=== PATIENT | male | born 1980 | race Caucasian/White ===

== ENCOUNTER 2020-08-02 20:43 | Emergency (ER) | payer BC, SELFPAY ==
[2020-08-02 20:44] VITALS: BP 158/104; PULSE 94; RESP 16; TEMP 36.4; O2SAT 98; BMI 37.8
--- NOTE | 2020-08-02 20:45 | ECG_ITS ---
APPROVED REPORT Exam: Resting ECG HR:87 bpm ECG Measurements Heart Rate 87 AXES PA 134 P 49 QRSd 96 QRS 0 QT 362 T 49 QTc 435 Conclusion Normal sinus rhythm Poor r wave progression Abnormal ECG Electronically signed by : Wayne Jorgensen, 08/03/2020 08:59:21
[2020-08-02 21:00] VITALS: BP 155/104; PULSE 85; RESP 16; O2SAT 96
--- NOTE | 2020-08-02 21:07 | XR_ITS ---
PROCEDURE: XR CHEST 2V CLINICAL HISTORY: cp COMPARISON: No exams were available for comparison FINDINGS: The cardiomediastinal silhouette and pulmonary vascularity are within normal limits considering a somewhat poor inspiration. The lungs are clear without infiltrates, suspicious nodules, or pleural effusions. No acute bony abnormalities. There is minor non recent wedging of a lower thoracic vertebrae. IMPRESSION: No acute findings. Dictated by: Dr. Héctor Lipscomb MD 08/02/2020 21:35 Dr. Héctor Lipscomb MD in [place] 08/02/2020 21:35
--- NOTE | 2020-08-02 21:07 | XR_ITS ---
PROCEDURE: XR SHOULDER LT MIN 2V CLINICAL INDICATION: pain COMPARISON: No exams were available for comparison FINDINGS: The clavicle is intact. There is a faint ossification or calcification within the AC joint probably posttraumatic in origin. There is a slightly lateral downsloping acromion process which could possibly predispose to mild impingement syndrome and suggest clinical correlation. The humeral head and glenoid appear normal. There are no soft tissue calcifications. IMPRESSION: Mild lateral downsloping acromion process, see discussion above Dictated by: Dr. Héctor Lipscomb MD 08/02/2020 21:38 Dr. Héctor Lipscomb MD in [place] 08/02/2020 21:38
[2020-08-02 21:20] LABS: Anion Gap 10.6 mEq/L (5-15); Basophils # 0.1 K/mm3 (0-0.2); Basophils % 0.8 % (0.1-2.0); Blood Urea Nitrogen 22 mg/dl (9-20); Calcium 9.7 mg/dl (8.4-10.2); Carbon Dioxide 28 mmol/L (22.0-30.0); Chloride 106 mmol/L (98-107); Creatinine Clearance Estimated 139 mL/min (50-200); Eosinophils # 0.4 K/mm3 (0.0-0.4); Eosinophils % 3.1 % (0.1-12.0); Estimated Glomerular Filt Rate 83 ml/min (>60); GFR (African American) 100 ML/MIN (>60); Glucose 125 mg/dl (74-100); Hematocrit 46.4 % (42.0-52.0); Hemoglobin 15.5 g/dL (14.1-18.0); Lymphocytes % 34.5 % (10-50); Mean Corpuscular HGB Conc 33.4 g/dL (31.8-35.4); Mean Corpuscular Hemoglobin 31.5 pg (27.0-31.2); Mean Corpuscular Volume 94.3 fl (80-94); Mean Platelet Volume 8.4 fl (7.4-10.4); Monocytes # 0.8 K/mm3 (0.1-1.0); Monocytes % 6.9 % (1.7-9.3); Neutrophils # 6.4 K/mm3 (1.8-7.8); Neutrophils % 54.7 % (37.0-80.0); Platelet Count 301 K/mm3 (142-424); Potassium 3.6 mmoL/L (3.5-5.1); Red Blood Count 4.92 M/mm3 (4.60-6.20); Red Cell Distribution Width 13.5 % (11.5-17.5); Sodium 141 mmol/L (136-145); White Blood Count 11.7 K/mm3 (4.8-10.8)
[2020-08-02 21:30] VITALS: BP 134/98; PULSE 84; RESP 16; O2SAT 99
[2020-08-02 21:58] LABS: Troponin I < 0.01 ng/ml (0.00-0.034)
--- NOTE | 2020-08-02 22:21 | HMH.EDGENADL ---
ED Disposition Clinical Impression: Chest pain Qualifiers: Chest pain type: unspecified Qualified Code(s): R07.9 - Chest pain, unspecified Disposition: Home, Self-Care Condition on Discharge: Good Instructions: DI for Atypical Chest Pain Referrals: Irene Hall PA [Primary Care Provider] - - Critical Care Critical Care Time: No Attestation: On 08/02/20, the high probability of a clinically significant, sudden or life threatening deterioration of the following system(s) required my full and direct attention, intervention and personal management. The time I documented below is in addition to time spent performing reported procedures but includes the following listed in this critical care notation. Medical Decision Making - Medical Records Medical records reviewed: Yes: I reviewed the patient's medical records. - Harrison Inquiry Pt receiving controlled substance: No Vital Signs: 08/02/20 20:44 08/02/20 21:00 08/02/20 21:30 Temperature 97.5 F L Temperature Source Oral Pulse Rate [Apical] 94 H 85 84 Respiratory Rate 16 16 16 Blood Pressure [Right Arm] 158/104 H 155/104 H 134/98 H Blood Pressure Mean [Right Arm] 122 121 110 Blood Pressure Source [Right Arm] Automatic Cuff Automatic Cuff Automatic Cuff Blood Pressure Position [Right Arm] Supine Supine Supine 02 Sat by Pulse Oximetry 98 96 99 Oxygen Delivery Method Room Air Room Air Room Air - Lab Data Lab Results 08/02/20 21:00: WBC 11.7 H, RBC 4.92, Hgb 15.5, Hct 46.4, MCV 94.3 H, MCH 31.5 H, MCHC 33.4, RDW 13.5, Plt Count 301, MPV 8.4, Neut % (Auto) 54.7, Lymph % (Auto) 34.5, [place] % (Auto) 6.9, Eos % (Auto) 3.1, Baso % (Auto) 0.8, Neut # (Auto) 6.4, Lymph # (Auto) 4.0, [place] # (Auto) 0.8, Eos # (Auto) 0.4, Baso # (Auto) 0.1 08/02/20 21:00: Sodium 141, Potassium 3.6, Chloride 106, Carbon Dioxide 28, Anion Gap 10.6, BUN 22 H, Creatinine 1.00, Estimated Creat Clear 139, Estimated GFR 83, Est GFR ( Amer) 100, Glucose 125 H, Calcium 9.7, Troponin I < 0.01 Result diagrams: 08/02/20 21:00 08/02/20 21:00 Orders (Tests/Meds): ED MEDICATIONS Discontinued Medications Generic Name Dose Route Start Last Admin Trade Name Thanh PRN Reason Stop Dose Admin Aspirin 324 mg 08/02/20 21:07 08/02/20 21:00 Aspirin 81mg Chewable Tablet PO 08/02/20 21:08 324 mg ONCE ONE Administration ORDERS Category Date Time Status Troponin I Q3H Lab 08/03/20 00:15 Ordered Troponin I Q3H Lab 08/03/20 03:15 Ordered Medical Decision Narrative: At this point, the exact cause of the patient's current symptom complex is unknown. Initial EKG is nondiagnostic and initial troponin within normal limits. At the present time, I doubt pulmonary embolus secondary to the lack of tachycardia, tachypnea, or hypoxia. The patient is also PERC negative. Similarly, I doubt aortic dissection or abdominal aortic aneurysm secondary to history and description of pain, the patient's nonfocal vascular examination in all four extremities, and CXR unremarkable for signs of mediastinal widening. Doubt pneumothorax given good bilateral breath sounds and chest X ray with good lung markings out to the periphery. No signs suggestive of pneumonia on history or physical exam as well. On examination patient does have pain with arm abduction and external rotation of arm, x-ray of shoulder was concerning for possible entrapment syndrome. These were consistent with patient's symptoms likely and will need to be followed up by primary care doctor for further work-up. And was informed of these findings and was amenable to plan General Adult HPI - General Chief complaint: Chest Pain Stated complaint: chest pain Time Seen by Provider: 08/02/20 21:00 Mode of Arrival: Ambulatory Limitations: No Limitations Description of Symptoms (Recalled from ER Triage Doc. by RN): Pt c/o pain in left upper chest that radiates to his left shoulder for a couple days . Pt rates pain as 7 out of 10 and is in
[2020-08-02 22:27] VITALS: BP 126/92; PULSE 83; RESP 16; TEMP 36.8; O2SAT 98
== END 2020-08-02 22:34 | disposition home or self-care (01) ==
PROVIDERS: Emergency Provider Emergency Medicine; PCP Nurse Practitioner Family
DX: R07.9 Chest pain, unspecified (principal); I10 Essential (primary) hypertension; E66.9 Obesity, unspecified; Z68.37 Body mass index [BMI] 37.0-37.9, adult; Z79.899 Other long term (current) drug therapy
CPT/HCPCS: 71046; 73030; 80048; 84484; 85025; 93005; 99283

== ENCOUNTER 2020-10-05 10:12 | Emergency (ER) | payer BC, SELFPAY ==
[2020-10-05 10:15] VITALS: BP 132/85; PULSE 82; RESP 19; TEMP 37.6; O2SAT 100; BMI 38.9
--- NOTE | 2020-10-05 10:39 | HMH.EDUTC ---
[facility] – [place] Disposition Clinical Impression: Sinusitis Qualifiers: Sinusitis location: unspecified location Chronicity: unspecified Qualified Code(s): J32.9 - Chronic sinusitis, unspecified Foot pain Qualifiers: Laterality: right Qualified Code(s): M79.671 - Pain in right foot Disposition: Home, Self-Care Condition on Discharge: Good Instructions: Sinusitis, Sinus Headache, DI for Sinusitis, DI for Foot Pain, Methylprednisolone, Amoxicillin and Clavulanic Acid Additional Instructions: *Monitor Temp, Over the counter Motrin or Tylenol as directed/as needed Tylenol every 4 hours and Motrin every 6 hours (as long as your family doctor has told you that you can take it) for fever or pain. and straight to ER if unable to lower temp less than 101.0 after medication given *Warm salt water gargles may help to soothe the throat *Throat Lozenges *Warm fluids like tea with honey may help to soothe the throat *Sleep elevated *Humidifier/Vaporizer *Flonase 2 sprays in each nostril daily but be aware that it may take 2-3 days before you notice improvement Make sure to follow up with your Family Doctor for further evaluation of pain in foot Call back to the [facility] later this evening for the official reading of your xray Return if needed Follow up IMMEDIATELY for new or worsening symptoms or no Noticeable improvement over the next 48-72 hours. 911 for difficulty breathing or swallowing Prescriptions: Amoxicillin/Potassium Clav [Augmentin 875-125 Tablet] 1 tab PO Q12H 7 Days #14 tab Transmission Status: Received by [facility] 493 methylPREDNISolone [Medrol 4mg tab] 4 mg PO DIRECTED #21 tab Transmission Status: Received by [facility] 493 Referrals: Irene Hall PA [Primary Care Provider] - As needed Forms: Work/School Release Time of Disposition: 11:13 Medical Decision Making - Harrison Inquiry Pt receiving controlled substance: No Harrison was queried for this patient: No Vital Signs: 10/05/20 10:15 10/05/20 11:14 Temperature 99.6 F 99.6 F Temperature Source Oral Pulse Rate 82 Pulse Rate [Right Brachial] 82 Respiratory Rate 19 19 Blood Pressure 132/85 Blood Pressure [Right Arm] 132/85 Blood Pressure Mean [Right Arm] 100 Blood Pressure Source [Right Arm] Automatic Cuff Blood Pressure Position [Right Arm] Sitting 02 Sat by Pulse Oximetry 100 Oxygen Delivery Method Room Air - Radiology Data #1 Image(s): Foot/Toes Image Reviewed: Yes I reviewed the patient's radiology image Preliminary Findings: No Fracture Seen Medical Decision Narrative: Patient state that he has taken both Augmentin and Steriods before without reactions or complications [facility] – [place] HPI - General Stated complaint: head stopped up, nose running, coughing up phlem Time Seen by Provider: 10/05/20 10:40 Mode of Arrival: Ambulatory Source of Information: Patient Limitations: No Limitations Description of Symptoms (Recalled from Triage Doc. by RN): PATIENT C/O HEADACHE, BODY ACHES, AND RIGHT LOWER LEG PAIN X 1 WEEK HEENT Symptoms (Recalled from RN notes): Yes Resp Symptoms (Recalled from RN notes): No Skin Symptoms (Recalled from RN notes): No MS Symptoms (Recalled from RN notes): Yes Functional Status (Recalled from RN notes): WNL - History of Present Illness Provider Complaint: Patient states that he has been having sinus problems for awhile now. State that he has been having sinus headache, sinus pain and pressure along with drainage in the back of his throat and feels like it is trying to move into his chest States that also he has been having pain in the bottom of his right foot for over a week and it is shooting pain up into his ankle area and lower leg Denies known injury - Related Data Home Medications Medication Instructions Recorded Confirmed raNITIdine HCL [Ranitidine HCl] 150 mg PO DAILY 12/23/18 08/02/20 Gabapentin [Gabapentin 300mg Cap] 300 mg PO BID 08/02/20 08/02/20 Losartan Potassium [Cozaar 50mg 50 mg
--- NOTE | 2020-10-05 10:45 | XR_ITS ---
PROCEDURE: XR FOOT RT MIN 3V CLINICAL INDICATION: PAIN COMPARISON: No exams were available for comparison FINDINGS: No fracture or dislocation. No lytic or blastic change. There is normal mineralization. The joint spaces are well-preserved. No significant degenerative/arthritic changes. No erosive changes evident. Other findings:None. IMPRESSION: No acute findings. Dictated by: Brannon Lopez MD 10/05/2020 13:15 Brannon Lopez MD in [place] 10/05/2020 13:15
[2020-10-05 11:14] VITALS: BP 132/85; PULSE 82; RESP 19; TEMP 37.6; O2SAT 100
== END 2020-10-05 11:18 | disposition home or self-care (01) ==
PROVIDERS: Emergency Provider Nurse Practitioner; PCP Nurse Practitioner Family
DX: J32.9 Chronic sinusitis, unspecified (principal); M79.671 Pain in right foot
CPT/HCPCS: 73630; 99202; G0463

== ENCOUNTER 2021-02-18 13:50 | Emergency (ER) | payer BC, SELFPAY ==
--- NOTE | 2021-02-18 13:46 | ECG_ITS ---
APPROVED REPORT Exam: Resting ECG HR:72 bpm ECG Measurements Heart Rate 72 AXES NV 138 P 58 QRSd 102 QRS 52 QT 384 T 46 QTc 420 Conclusion Normal sinus rhythm Normal ECG Electronically signed by : Wayne Jorgensen MD 02/23/2021 21:07:16
[2021-02-18 13:51] VITALS: BP 159/95; PULSE 61; RESP 18; O2SAT 98; BMI 30.4
--- NOTE | 2021-02-18 14:04 | XR_ITS ---
PROCEDURE: XR CHEST 2V CLINICAL HISTORY: chest pain COMPARISON: CR XR CHEST 2V from 08/02/2020 FINDINGS: The cardiomediastinal silhouette and pulmonary vascularity are within normal limits. No lobar consolidation or collapse. There are low lung volumes. Focal area of increased density is present in the left suprahilar region and may be due to costochondral calcification of the 1st rib. The remaining lungs are clear. Degenerative changes thoracic spine with mild lower thoracic kyphosis IMPRESSION: No change with no acute finding Dictated by: Brannon Lopez MD 02/18/2021 14:34 Brannon Lopez MD in [place] 02/18/2021 14:34
[2021-02-18 14:13] LABS: Basophils # 0.1 K/mm3 (0-0.2); Basophils % 1.6 % (0.1-2.0); Chloride 107 mmol/L (98-107); Eosinophils # 0.1 K/mm3 (0.0-0.4); Eosinophils % 1.6 % (0.1-12.0); Hematocrit 46.2 % (42.0-52.0); Hemoglobin 15.4 g/dL (14.1-18.0); Lymphocytes # 2.7 K/mm3 (0.7-4.5); Lymphocytes % 32.6 % (10-50); Mean Corpuscular HGB Conc 33.3 g/dL (31.8-35.4); Mean Corpuscular Hemoglobin 31.7 pg (27.0-31.2); Mean Corpuscular Volume 95.1 fl (80-94); Mean Platelet Volume 8.9 fl (7.4-10.4); Monocytes # 0.5 K/mm3 (0.1-1.0); Monocytes % 5.5 % (1.7-9.3); Neutrophils # 4.9 K/mm3 (1.8-7.8); Neutrophils % 58.7 % (37.0-80.0); Platelet Count 286 K/mm3 (142-424); Red Blood Count 4.86 M/mm3 (4.60-6.20); Red Cell Distribution Width 13.3 % (11.5-17.5); Sodium 141 mmol/L (136-145); White Blood Count 8.3 K/mm3 (4.8-10.8)
[2021-02-18 14:14] LABS: Potassium 4.2 mmoL/L (3.5-5.1)
[2021-02-18 14:17] LABS: Anion Gap 12.2 mEq/L (5-15); Blood Urea Nitrogen 12 mg/dl (9-20); Calcium 8.9 mg/dl (8.4-10.2); Carbon Dioxide 26 mmol/L (22.0-30.0); Creatinine Clearance Estimated 140 mL/min (50-200); Estimated Glomerular Filt Rate 93 ml/min (>60); GFR (African American) 113 ML/MIN (>60); Glucose 106 mg/dl (74-100)
--- NOTE | 2021-02-18 14:17 | PC.NURSE ---
Pt to rad.
[2021-02-18 14:29] LABS: Troponin I < 0.01 ng/ml (0.00-0.034)
[2021-02-18 15:01] VITALS: BP 121/83; PULSE 80; RESP 21; O2SAT 98
[2021-02-18 15:31] VITALS: BP 116/84; PULSE 56; RESP 22; O2SAT 98
[2021-02-18 16:01] VITALS: BP 118/77; PULSE 60; RESP 23; O2SAT 97
[2021-02-18 16:31] VITALS: BP 134/73; PULSE 61; RESP 19; O2SAT 98
[2021-02-18 17:59] LABS: Troponin I < 0.01 ng/ml (0.00-0.034)
--- NOTE | 2021-02-18 18:13 | HMH.EDGENADL ---
ED Disposition Clinical Impression: Atypical chest pain Supraspinatus syndrome Qualifiers: Laterality: left Qualified Code(s): M75.102 - Unspecified rotator cuff tear or rupture of left shoulder, not specified as traumatic Disposition: Home, Self-Care Condition on Discharge: Good Instructions: DI for Atypical Chest Pain Prescriptions: Ibuprofen [Ibuprofen 400mg Tablet] 600 mg PO Q6HP 14 Days #60 tab [facility] hydrOXYzine pamoate [Vistaril 25mg capsule] 25 mg PO Q8H PRN #20 cap PRN Reason: Anxiety Transmission Status[facility] Referrals: Irene Hall PA [Primary Care Provider] - Forms: Work/School Release - Critical Care Critical Care Time: No Attestation: On 02/18/21, the high probability of a clinically significant, sudden or life threatening deterioration of the following system(s) required my full and direct attention, intervention and personal management. The time I documented below is in addition to time spent performing reported procedures but includes the following listed in this critical care notation. Medical Decision Making - Medical Records Medical records reviewed: Yes: I reviewed the patient's medical records. - Harrison Inquiry Pt receiving controlled substance: No Vital Signs: 02/18/21 13:51 02/18/21 15:01 02/18/21 15:31 Temperature Temperature Source Pulse Rate 80 56 L Pulse Rate [Left Radial] 61 Respiratory Rate 18 21 22 Blood Pressure 121/83 116/84 Blood Pressure [Right Arm] 159/95 H Blood Pressure Mean 98 94 Blood Pressure Mean [Right Arm] 116 Blood Pressure Source Blood Pressure Source [Right Arm] Automatic Cuff Blood Pressure Position Blood Pressure Position [Right Arm] Sitting 02 Sat by Pulse Oximetry 98 98 98 Oxygen Delivery Method Room Air 02/18/21 16:01 02/18/21 16:31 02/18/21 18:27 Temperature 97.6 F Temperature Source Oral Pulse Rate 60 61 69 Pulse Rate [Left Radial] Respiratory Rate 23 19 18 Blood Pressure 118/77 134/73 136/81 Blood Pressure [Right Arm] Blood Pressure Mean 92 82 Blood Pressure Mean [Right Arm] Blood Pressure Source Automatic Cuff Blood Pressure Source [Right Arm] Blood Pressure Position Sitting Blood Pressure Position [Right Arm] 02 Sat by Pulse Oximetry 97 98 Oxygen Delivery Method Room Air - Lab Data Lab Results 02/18/21 13:52: WBC 8.3, RBC 4.86, Hgb 15.4, Hct 46.2, MCV 95.1 H, MCH 31.7 H, MCHC 33.3, RDW 13.3, Plt Count 286, MPV 8.9, Neut % (Auto) 58.7, Lymph % (Auto) 32.6, [place] % (Auto) 5.5, Eos % (Auto) 1.6, Baso % (Auto) 1.6, Neut # (Auto) 4.9, Lymph # (Auto) 2.7, [place] # (Auto) 0.5, Eos # (Auto) 0.1, Baso # (Auto) 0.1 02/18/21 13:52: Sodium 141, Potassium 4.2, Chloride 107, Carbon Dioxide 26, Anion Gap 12.2, BUN 12, Creatinine 0.90, Estimated Creat Clear 140, Estimated GFR 93, Est GFR ( Amer) 113, Glucose 106 H, Calcium 8.9, Troponin I < 0.01 02/18/21 17:01: Troponin I < 0.01 Result diagrams: 02/18/21 13:52 02/18/21 13:52 Orders (Tests/Meds): ED MEDICATIONS Discontinued Medications Generic Name Dose Route Start Last Admin Trade Name Freq PRN Reason Stop Dose Admin Lorazepam 0.5 mg 02/18/21 15:08 02/18/21 16:04 Lorazepam 0.5mg Tablet PO 02/18/21 15:09 0.5 mg ONCE ONE Administration ORDERS Category Date Time Status Troponin I Q3H Lab 02/18/21 20:15 Ordered Medical Decision Narrative: Pt to the Ed today for pain to the left upper extremity and chest. DDx includes atypical chest pain, ACS, Pneumothorax, plueral effusion, pneumonia, shoulder dislocation or shoulder MSK pain. Will obtain CBC, CMP, troponin, CXR for further evaluation. Pt is not tachycardic, not short of breath or hypoxic and has no other risk factors for PE. Labs obtained and pt has no elevation in 0 or 3 hr troponin, no significant anemia and no focal consolidative process. Pt was told about hi
[2021-02-18 18:27] VITALS: BP 136/81; PULSE 69; RESP 18; TEMP 36.4; O2SAT 98
== END 2021-02-18 18:28 | disposition home or self-care (01) ==
PROVIDERS: Emergency Provider Student in an Organized Health Care Education/Training Program; PCP Nurse Practitioner Family
DX: R07.89 Other chest pain (principal); M75.102 Unspecified rotator cuff tear or rupture of left shoulder, not specified as traumatic
CPT/HCPCS: 36415; 71046; 80048; 84484; 85025; 93005; 99283

== ENCOUNTER 2021-03-28 17:50 | Emergency (ER) | payer BC, SELFPAY ==
[2021-03-28] VITALS (8 sets, daily range): BP systolic 114–141; BP diastolic 74–97; PULSE 80–102; RESP 16–22; TEMP 36.6–37.1; O2SAT 95–98; BMI 37.8
--- NOTE | 2021-03-28 17:53 | HMH.EDGENADL ---
ED Disposition Condition on Discharge: Good - Critical Care Critical Care Time: No <Arnold Song - Last Filed: 03/28/21 20:01> Condition on Discharge: Good Time of Disposition: 22:13 - Critical Care Critical Care Time: No Total Critical Care Time: 0 <Johanny Young - Last Filed: 03/28/21 22:13> Clinical Impression: Atypical chest pain, Hyperventilation, Acute anxiety Disposition: Home, Self-Care Additional Instructions: You have been evaluated for atypical chest pain. There is evidence of recent pneumonia, Covid pneumonia, on your CT scan. No other abnormalities seen. Please continue to monitor your symptoms at home. Follow-up with your primary care doctor. Return to the emergency department for any new or worsening symptoms. Referrals: Yeyo Bailey APRN [Primary Care Provider] - Attestation: On 03/28/21, the high probability of a clinically significant, sudden or life threatening deterioration of the following system(s) required my full and direct attention, intervention and personal management. The time I documented below is in addition to time spent performing reported procedures but includes the following listed in this critical care notation. Medical Decision Making - Harrison Inquiry Pt receiving controlled substance: No - Lab Data Result diagrams: 03/28/21 17:53 03/28/21 17:53 <DuncanArnold - Last Filed: 03/28/21 20:01> - Lab Data Result diagrams: 03/28/21 17:53 03/28/21 17:53 <Johanny Young - Last Filed: 03/28/21 22:13> Vital Signs: 03/28/21 17:51 03/28/21 19:15 03/28/21 19:42 Temperature 98 F 98.7 F Temperature Source Oral Oral Pulse Rate 93 H 94 H Pulse Rate [Radial] 98 H Respiratory Rate 22 16 16 Blood Pressure 136/84 132/96 H Blood Pressure [Right Arm] 141/97 H Blood Pressure Mean [Right Arm] 111 Blood Pressure Position Sitting Blood Pressure Position [Right Arm] Sitting 02 Sat by Pulse Oximetry 98 96 98 Oxygen Delivery Method Room Air Room Air 03/28/21 19:44 03/28/21 20:00 03/28/21 20:56 Temperature Temperature Source Pulse Rate 102 H 99 H 88 Pulse Rate [Radial] Respiratory Rate 16 21 16 Blood Pressure 132/96 H 130/94 H 115/83 Blood Pressure [Right Arm] Blood Pressure Mean [Right Arm] Blood Pressure Position Blood Pressure Position [Right Arm] 02 Sat by Pulse Oximetry 98 97 96 Oxygen Delivery Method 03/28/21 21:00 Temperature Temperature Source Pulse Rate 84 Pulse Rate [Radial] Respiratory Rate 16 Blood Pressure 126/85 Blood Pressure [Right Arm] Blood Pressure Mean [Right Arm] Blood Pressure Position Blood Pressure Position [Right Arm] 02 Sat by Pulse Oximetry 95 Oxygen Delivery Method - Lab Data Lab Results 03/28/21 17:53: WBC 12.1 H, RBC 5.18, Hgb 16.1, Hct 48.4, MCV 93.3, MCH 31.1, MCHC 33.4, RDW 13.2, Plt Count 416, MPV 9.3, Neut % (Auto) 64.4, Lymph % (Auto) 28.5, [place] % (Auto) 5.8, Eos % (Auto) 0.5, Baso % (Auto) 0.7, Neut # (Auto) 7.8, Lymph # (Auto) 3.4, [place] # (Auto) 0.7, Eos # (Auto) 0.1, Baso # (Auto) 0.1 03/28/21 17:53: Sodium 139, Potassium 3.6, Chloride 107, Carbon Dioxide 25, Anion Gap 10.6, BUN 13, Creatinine 0.90, Estimated Creat Clear 152, Estimated GFR 93, Est GFR ( Amer) 113, Glucose 128 H, Calcium 9.2, Troponin I < 0.01 03/28/21 17:53: D-Dimer 0.54 H 03/28/21 21:10: Troponin I < 0.01 Orders (Tests/Meds): ED MEDICATIONS Discontinued Medications Generic Name Dose Route Start Last Admin Trade Name Freq PRN Reason Stop Dose Admin Iopamidol 70 ml 03/28/21 19:34 03/28/21 19:35 Iopamidol-370 (76%);100ml Bottle IV 03/28/21 19:35 70 ml ONCE ONE Administration Sodium Chloride 40 ml 03/28/21 19:34 03/28/21 19:35 0.9 % Sodium Chloride 50 Ml Vial IV 03/28/21 19:35 40 ml ONCE ONE Administration Sodium Chloride 10 ml 03/28/21 19:34 03/28/21 19:35 Sodium Chloride 0.9% 10ml Syr (Rad Only) IV 03/28/21 19:35 10 ml ONCE ONE Administratio
--- NOTE | 2021-03-28 18:03 | ECG_ITS ---
APPROVED REPORT Exam: Resting ECG HR:90 bpm ECG Measurements Heart Rate 90 AXES OR 132 P 66 QRSd 104 QRS 88 QT 382 T 14 QTc 467 Conclusion Normal sinus rhythm Incomplete right bundle branch block Borderline ECG Electronically signed by : Wayne Jorgensen MD 03/30/2021 21:23:21
--- NOTE | 2021-03-28 18:05 | XR_ITS ---
PROCEDURE INFORMATION: Exam: XR Chest Exam date and time: 03/28/2021 6:05 PM Age: 41 years old Clinical indication: Shortness of breath; Additional info: Chest pain TECHNIQUE: Imaging protocol: XR of the chest. Views: 1 view. Total images: 1 COMPARISON: CR XR CHEST 2V 02/18/2021 2:09 PM FINDINGS: Lungs: Low lung volumes. Pulmonary vasculature grossly normal. No gross pulmonary infiltrates or edema pattern. Pleural spaces: No pleural effusion. No pneumothorax. Heart/Mediastinum: Heart size normal. No tracheal/mediastinal shift. Bones/joints: No acute osseous abnormalities are identified. Mild thoracic spondylosis. IMPRESSION: No acute thoracic process. No significant change from 02/18/2021.
[2021-03-28 18:14] LABS: Basophils # 0.1 K/mm3 (0-0.2); Basophils % 0.7 % (0.1-2.0); Eosinophils # 0.1 K/mm3 (0.0-0.4); Eosinophils % 0.5 % (0.1-12.0); Hematocrit 48.4 % (42.0-52.0); Hemoglobin 16.1 g/dL (14.1-18.0); Lymphocytes # 3.4 K/mm3 (0.7-4.5); Lymphocytes % 28.5 % (10-50); Mean Corpuscular HGB Conc 33.4 g/dL (31.8-35.4); Mean Corpuscular Hemoglobin 31.1 pg (27.0-31.2); Mean Corpuscular Volume 93.3 fl (80-94); Mean Platelet Volume 9.3 fl (7.4-10.4); Monocytes # 0.7 K/mm3 (0.1-1.0); Monocytes % 5.8 % (1.7-9.3); Neutrophils # 7.8 K/mm3 (1.8-7.8); Neutrophils % 64.4 % (37.0-80.0); Platelet Count 416 K/mm3 (142-424); Red Blood Count 5.18 M/mm3 (4.60-6.20); Red Cell Distribution Width 13.2 % (11.5-17.5); White Blood Count 12.1 K/mm3 (4.8-10.8)
[2021-03-28 18:17] LABS: Anion Gap 10.6 mEq/L (5-15); Blood Urea Nitrogen 13 mg/dl (9-20); Calcium 9.2 mg/dl (8.4-10.2); Carbon Dioxide 25 mmol/L (22.0-30.0); Chloride 107 mmol/L (98-107); Creatinine Clearance Estimated 152 mL/min (50-200); Estimated Glomerular Filt Rate 93 ml/min (>60); GFR (African American) 113 ML/MIN (>60); Glucose 128 mg/dl (74-100); Potassium 3.6 mmoL/L (3.5-5.1); Sodium 139 mmol/L (136-145)
[2021-03-28 18:29] LABS: Troponin I < 0.01 ng/ml (0.00-0.034)
[2021-03-28 18:55] LABS: D-Dimer 0.54 ug/mL (0.0-0.5)
--- NOTE | 2021-03-28 19:10 | CT_ITS ---
PROCEDURE INFORMATION: Exam: CTA Chest With Contrast Exam date and time: 03/28/2021 7:10 PM Age: 41 years old Clinical indication: Pain; Chest pressure; Additional info: SOA, elev d-dimer, R/O pe HX of recent covid TECHNIQUE: Imaging protocol: Computed tomographic angiography of the chest with contrast. 3D rendering (Not supervised by radiologist): MIP and/or 3D reconstructed images were created by the technologist. Total images: 603 Radiation optimization: All CT scans at this facility use at least one of these dose optimization techniques: automated exposure control; mA and/or kV adjustment per patient size (includes targeted exams where dose is matched to clinical indication); or iterative reconstruction. Contrast material: ISOVUE 370; Contrast volume: 70 ml; Contrast route: INTRAVENOUS (IV); COMPARISON: CR XR CHEST PORTABLE 03/28/2021 6:15 PM FINDINGS: Pulmonary arteries: The pulmonary arteries enhance appropriately with no evidence of pulmonary embolism. Aorta: The aorta enhances appropriately without evidence of dissection or aneurysm. No mediastinal hematoma. Thyroid: The visualized thyroid gland demonstrates no gross abnormality. Lungs: Mild bilateral bronchial wall thickening suggesting an element of bronchitis or bronchial edema, with no evidence of bronchiectasis or bronchial occlusions. Patchy mild peripheral alveolar opacities are present in the right upper lobe posterior segment and in the inferior right middle lobe near the minor fissure, with additional multifocal patchy involvement in the lower lobes and posterolateral left upper lobe. This is concerning for multifocal pneumonia. Granulomatous calcifications in the left lower lobe and left hilum. No pulmonary mass lesions are identified. Pleural spaces: No pleural effusion. No pneumothorax. Heart: Heart size normal. No pericardial effusion. Mediastinal space: The esophagus is largely contracted but demonstrates no gross abnormality. Lymph nodes: No supraclavicular or axillary adenopathy. No mediastinal adenopathy. Borderline brandon enlargement in the left hilum measuring 9 mm short axis. Liver: Question mild generalized fatty infiltration of the liver. Pancreas: Mild-moderate fatty infiltration of the pancreas. Bones/joints: No acute osseous abnormalities are identified. Soft tissues: The soft tissues of the chest wall demonstrate no acute abnormality. IMPRESSION: 1. No evidence of pulmonary embolism or aortic dissection. 2. Multifocal peripheral alveolar opacities in both lungs concerning for multifocal pneumonia or changes of recent prior pneumonia. 3. Mild bronchial wall thickening suggesting an element of bronchitis or bronchial edema. 4. Additional nonemergent findings detailed above.
[2021-03-28 21:51] LABS: Troponin I < 0.01 ng/ml (0.00-0.034)
== END 2021-03-28 22:23 | disposition home or self-care (01) ==
PROVIDERS: Emergency Provider Emergency Medicine; PCP Nurse Practitioner Family
DX: R07.9 Chest pain, unspecified (principal); R06.4 Hyperventilation; F41.9 Anxiety disorder, unspecified
CPT/HCPCS: 36415; 71045; 71275; 80048; 84484; 85025; 85378; 93005; 96365; 96367; 99283; Q9967

== ENCOUNTER 2022-11-29 22:26 | Emergency (ER) | payer BC, SELFPAY ==
[2022-11-29 22:26] VITALS: BP 125/106; PULSE 74; RESP 17; TEMP 36.9; O2SAT 98; BMI 41.8
--- NOTE | 2022-11-29 22:27 | ECG_ITS ---
APPROVED REPORT Exam: Resting ECG HR:65 bpm ECG Measurements Heart Rate 65 AXES ME 151 P 60 QRSd 108 QRS 89 QT 379 T 41 QTc 391 Conclusion SINUS RHYTHM INCOMPLETE RIGHT BUNDLE BRANCH BLOCK [90+ ms QRS DURATION, TERMINAL R IN V1/V2, 40+ ms S IN I/aVL/V4/V5/V6] BORDERLINE ECG UNCONFIRMED REPORT Electronically signed by : Wayne Jorgensen MD 11/30/2022 20:07:03
--- NOTE | 2022-11-29 22:30 | XR_ITS ---
PROCEDURE INFORMATION: Exam: XR Chest Exam date and time: 11/29/2022 10:51 PM Age: 42 years old Clinical indication: Sternal or substernal pain and left-sided; Additional info: Chest pain TECHNIQUE: Imaging protocol: Radiologic exam of the chest. Views: 2 views. COMPARISON: CR XR CHEST PORTABLE 02/27/2021 18:15 FINDINGS: Lungs: Low lung volumes with associated vascular crowding and bibasilar atelectasis. Pleural spaces: Unremarkable. No pleural effusion. No pneumothorax. Heart/Mediastinum: Unremarkable. No cardiomegaly. Bones/joints: Unremarkable. IMPRESSION: No acute findings.
--- NOTE | 2022-11-29 22:38 | PC.NURSE ---
Pt does not want nitro at this time, states it will give him a headache.
[2022-11-29 22:43] LABS: Basophils # 0.1 K/mm3 (0-0.2); Basophils % 0.7 % (0.1-2.0); Eosinophils # 0.3 K/mm3 (0.0-0.4); Hematocrit 49.2 % (42.0-52.0); Hemoglobin 15.9 g/dL (14.1-18.0); Lymphocytes # 4.3 K/mm3 (0.7-4.5); Lymphocytes % 39.1 % (10-50); Mean Corpuscular HGB Conc 32.4 g/dL (31.8-35.4); Mean Corpuscular Hemoglobin 30.5 pg (27.0-31.2); Mean Platelet Volume 8.9 fl (7.4-10.4); Monocytes # 0.6 K/mm3 (0.1-1.0); Monocytes % 5.8 % (1.7-9.3); Neutrophils # 5.7 K/mm3 (1.8-7.8); Neutrophils % 51.4 % (37.0-80.0); Platelet Count 311 K/mm3 (142-424); Red Blood Count 5.23 M/mm3 (4.60-6.20); Red Cell Distribution Width 13.3 % (11.5-17.5)
[2022-11-29 22:52] LABS: Chloride 101 mmol/L (98-107); Potassium 4.1 mmoL/L (3.5-5.1); Sodium 141 mmol/L (136-145)
[2022-11-29 22:55] LABS: Alanine Aminotransferase 35 U/L (12-78); Albumin Level 4.6 g/dl (3.5-5.0); Albumin/Globulin Ratio 1.3 (1.1-1.8); Alkaline Phosphatase 83 U/L (38-126); Anion Gap 15.1 mEq/L (5-15); Aspartate Amino Transferase 32 U/L (17-59); Bilirubin,Total 0.6 mg/dl (0.2-1.3); Blood Urea Nitrogen 16 mg/dl (9-20); Carbon Dioxide 29 mmol/L (22.0-30.0); Creatinine Clearance Estimated 85 mL/min (50-200); Estimated Glomerular Filt Rate 73 ml/min (>60); GFR (African American) 89 ML/MIN (>60); Globulin 3.6 g/dL (1.3-3.2); Total Protein,Serum 8.2 g/dl (6.3-8.2)
[2022-11-29 22:56] LABS: Calcium 9.3 mg/dl (8.4-10.2); Glucose 82 mg/dl (74-100)
--- NOTE | 2022-11-29 22:59 | PC.NURSE ---
patient gone to RAD at this time.
[2022-11-29 23:05] LABS: NT Pro Brain Natriuretic Pep. < 20.0 pg/mL (0-125)
[2022-11-29 23:09] LABS: Troponin I < 0.01 ng/ml (0.00-0.034)
[2022-11-29 23:11] LABS: Microscopic, Urine URINE MICROSCOPIC (MICROSCOPIC)
[2022-11-29 23:19] LABS: Appearance,Urine CLEAR (Clear); Bilirubin,Urine Negative (Negative); Blood, Urine Negative (Negative); Color,Urine YELLOW (Yellow); Glucose,Urine (UA) Negative (Negative); Ketones,Urine Negative (Negative); Leukocyte Esterase,Urine Negative (Negative); Nitrate,Urine Negative (Negative); Protein,Urine Negative (Negative); Urobilinogen,Urine 0.2 EU/dl (0.2)
--- NOTE | 2022-11-29 23:52 | PC.NURSE ---
Dr. Everett at
[2022-11-29 23:59] LABS: Mucus,Urine Trace /lpf; Squamous Epithelial Cell,Urine Occasional #/hpf (0-5)
[2022-11-30] VITALS: BP 105/70; PULSE 54; RESP 19; O2SAT 96
--- NOTE | 2022-11-30 00:16 | [facility].EDCP ---
Discharge Plan Disposition Patient Disposition: Home, Self-Care Prescriptions Prescriptions: No Action ranitidine HCl 150 MG tablet 150 mg PO DAILY losartan 50 MG tablet 50 mg PO DAILY gabapentin 300 MG capsule 300 mg PO BID methylprednisolone 4 MG tablet 4 mg PO DIRECTED Qty: 21 0RF Rx Instructions: Take as directed on package instructions amoxicillin-pot clavulanate 1 EACH tablet 1 tab PO Q12H 7 Days Qty: 14 0RF ibuprofen 400 MG tablet 600 mg PO Q6HP 14 Days Qty: 60 0RF hydroxyzine pamoate 25 MG capsule 25 mg PO Q8H PRN (Reason: Anxiety) Qty: 20 0RF hydroxyzine pamoate 25 MG capsule 25 mg PO Q8H PRN (Reason: Anxiety) Qty: 20 0RF Referrals Follow up/Referrals: Yeyo Bailey APRN [Primary Care Provider] - See instructions Clinical Impressions Clinical Impression: Chest pain Stand Alone Forms Stand Alone Forms: Work/School Release Instructions Patient Instructions: DI for Atypical Chest Pain Discharge ED Provider: Karlos (ED)Dane Chest Pain HPI General Chief Complaint: Chest Pain Stated Complaint: CP Time Seen by Provider: 11/29/22 22:45 Mode of Arrival: Wheelchair Source of Information: Patient and Medical Record Limitations: No Limitations Description of Symptoms (Recalled from ER Triage Doc. by RN): 42 M presents with 8/10 chest pain that he reports as a pressure. He reports having hundreds of tests and no one can tell him anything. This episode is similar to previous in the past. Patient also adds he has tingling to his arms and legs. History of Present Illness HPI narrative: pt had onset of lower ant chest pain and upper abd pain tonight - has seen card at [facility] and reported nl gxt - no known cardiac dis MD complaint: chest pain Onset (ago): hour(s) Duration: intermittent Activity at onset: during rest Pain location: epigastric Severity: moderate Quality: sharp Risk Factors for CAD: Family Hx of CAD Treatments prior to or on arrival for Cardiac Chest Pain: none ABRAHAN Score for Non-Stemi Age of Patient: 40-49 years old Heart Rate: 70-89 bpm Systolic Blood Pressure: 100-119 mmHg Serum Creatinine: 0.80-1.19 mg/dl CHF [place] Class: I-No CHF Other Risk Factors: None Non-Stemi Risk Score: 84 Risk Stratification: 1-108 = Low Risk Related Data Prior Cardiac Testing/Procedures: Stress Test Home Medications Medication Instructions Recorded Confirmed ranitidine HCl 150 mg tablet 150 mg PO DAILY GERD 12/23/18 08/02/20 gabapentin 300 mg capsule 300 mg PO BID Back ache/back pain 08/02/20 08/02/20 losartan 50 mg tablet 50 mg PO DAILY High blood pressure 08/02/20 08/02/20 Previous Rx's Medication Instructions Recorded amoxicillin 875 mg-potassium 1 tab PO Q12H 7 days #14 tabs 10/05/20 clavulanate 125 mg tablet methylprednisolone 4 mg tablet 4 mg PO DIRECTED #21 tabs 10/05/20 hydroxyzine pamoate 25 mg capsule 25 mg PO Q8H PRN Anxiety #20 caps 02/18/21 ibuprofen 400 mg tablet 600 mg PO Q6HP 14 days #60 tabs 02/18/21 hydroxyzine pamoate 25 mg capsule 25 mg PO Q8H PRN Anxiety #20 caps 03/28/21 Allergies Allergy/AdvReac Type Severity Reaction Status Date / Time No Known Allergies Allergy Verified 12/23/18 21:17 [facility] Disclaimer: The information contained in this section may have been updated after the patient was seen, as this information can be updated by other users. Social History Smoking Status: Never smoker alcohol intake: never substance use type: denies use current occupational status: other Travel in the last 8 weeks: None household members: spouse housing: house ROS Obtained: Yes All systems reviewed & no additional complaints except as documented Physical Exam General General appearance: alert Head Head exam: normocephalic Eye Eye exam: Present PERRL and EOMI ENT ENT exam: Present mucous membranes moist Neck Neck exam: Present trachea midline Respiratory Respiratory ex
--- NOTE | 2022-11-30 00:24 | CT_ITS ---
PROCEDURE INFORMATION: Exam: CT Abdomen And Pelvis With Contrast Exam date and time: 11/30/2022 12:45 AM Age: 42 years old Clinical indication: Abdominal pain; Localized; Upper TECHNIQUE: Imaging protocol: Computed tomography of the abdomen and pelvis with contrast. Radiation optimization: All CT scans at this facility use at least one of these dose optimization techniques: automated exposure control; mA and/or kV adjustment per patient size (includes targeted exams where dose is matched to clinical indication); or iterative reconstruction. Contrast material: ISOVUE; Contrast volume: 75 ml; Contrast route: IV; REPORTING DATA: Count of CT and Cardiac NM exams in prior 12 months: This patient has received 0 known CTs and 0 known cardiac nuclear medicine studies in the 12 months prior to the current study. COMPARISON: CT ABDOMEN PELVIS W CON 09/29/2018 01:37 FINDINGS: Lungs: Mild bibasilar atelectasis. Liver: Normal. No mass. Gallbladder and bile ducts: Normal. No calcified stones. No ductal dilation. Pancreas: Normal. No ductal dilation. Spleen: Normal. No splenomegaly. Adrenal glands: Normal. No mass. Kidneys and ureters: Normal. No hydronephrosis. Stomach and bowel: Nonspecific small bowel wall thickening. Appendix: Unremarkable appendix. 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 Vasculature: Unremarkable. No abdominal aortic aneurysm. Lymph nodes: Unremarkable. No enlarged lymph nodes. Urinary bladder: Unremarkable as visualized. Reproductive: Mild prostate enlargement. Bones/joints: Unremarkable. No acute fracture. Soft tissues: Unremarkable. Other findings: Stigmata of old granulomatous disease. IMPRESSION: Nonspecific small bowel wall thickening. Please correlate for evidence of enteritis.
[2022-11-30 01:18] LABS: Amylase 80 U/L (30-110); Lipase 102 U/L (23-300)
[2022-11-30 01:30] LABS: Troponin I < 0.01 ng/ml (0.00-0.034)
[2022-11-30 01:41] VITALS: BP 110/72; PULSE 63; RESP 16; TEMP 36.6
[2022-11-30 02:11] VITALS: PULSE 81
== END 2022-11-30 02:12 | disposition home or self-care (01) ==
PROVIDERS: Emergency Provider Emergency Medicine; PCP Nurse Practitioner Family
DX: R07.9 Chest pain, unspecified (principal); R20.2 Paresthesia of skin; R10.13 Epigastric pain
CPT/HCPCS: 71046; 74177; 80053; 81001; 82150; 83690; 83880; 84484; 85025; 93005; 96361; 96374; 96375; 99285; Q9967

== ENCOUNTER 2023-02-20 11:56 | Emergency (ER) | payer BC, SELFPAY ==
[2023-02-20] VITALS (7 sets, daily range): BP systolic 101–131; BP diastolic 80–88; PULSE 53–70; RESP 16–21; TEMP 36.6–36.7; O2SAT 96–98; BMI 37.8
--- NOTE | 2023-02-20 11:56 | ECG_ITS ---
APPROVED REPORT Exam: Resting ECG HR:71 bpm ECG Measurements Heart Rate 71 AXES [place] 153 P 61 QRSd 111 QRS 85 QT 383 T 11 QTc 405 Conclusion SINUS RHYTHM MODERATE INTRAVENTRICULAR CONDUCTION DELAY [110+ ms QRS DURATION] BORDERLINE ECG UNCONFIRMED REPORT Electronically signed by : Wayne Jorgensen MD 02/21/2023 15:51:52
--- NOTE | 2023-02-20 12:27 | XR_ITS ---
PROCEDURE INFORMATION: Exam: XR Chest Exam date and time: 02/20/2023 12:34 PM Age: 42 years old Clinical indication: Other: Chest pain; Additional info: Cp TECHNIQUE: Imaging protocol: Radiologic exam of the chest. Views: 1 view. COMPARISON: CR XR CHEST 2V 11/29/2022 10:51 PM FINDINGS: Lungs: Unremarkable. No consolidation. Pleural spaces: Unremarkable. No pleural effusion. No pneumothorax. Heart/Mediastinum: Unremarkable. No cardiomegaly. Bones/joints: Unremarkable. IMPRESSION: No acute findings.
--- NOTE | 2023-02-20 12:28 | HMH.EDGENADL ---
Discharge Plan Disposition Patient Disposition: Home, Self-Care Condition: Good Prescriptions Prescriptions: New hydroxyzine HCl 25 mg tablet 25 mg PO BID PRN (Reason: anxiety) 10 Days Qty: 20 0RF No Action ranitidine HCl 150 MG tablet 150 mg PO DAILY losartan 50 MG tablet 50 mg PO DAILY gabapentin 300 MG capsule 300 mg PO BID methylprednisolone 4 MG tablet 4 mg PO DIRECTED Qty: 21 0RF Rx Instructions: Take as directed on package instructions amoxicillin-pot clavulanate 1 EACH tablet 1 tab PO Q12H 7 Days Qty: 14 0RF ibuprofen 400 MG tablet 600 mg PO Q6HP 14 Days Qty: 60 0RF hydroxyzine pamoate 25 MG capsule 25 mg PO Q8H PRN (Reason: Anxiety) Qty: 20 0RF hydroxyzine pamoate 25 MG capsule 25 mg PO Q8H PRN (Reason: Anxiety) Qty: 20 0RF Referrals Follow up/Referrals: Provider,Referral, MD [Referring] - See instructions Activity Restrictions/Add. Instructions Additional Instructions/Restrictions: You were evaluated in the emergency department today for anxiety and chest pain. We did not identify any dangerous causes of your chest pain. Your symptoms were improved by antianxiety medication. You are prescribed hydroxyzine. I only prescribed a short course because I want you to follow-up with your primary care physician as soon as possible. They will be able to provide refills. Make an appointment with your primary care physician in the next 2 to 3 days for reevaluation. I would recommend stopping the amitriptyline since you do not like the side effects and it does not work well for you. Return to the emergency department with new or worsening symptoms. Clinical Impressions Clinical Impression: Anxiety Discharge ED Provider: Reinaldo Kraus Adult [facility] General Chief complaint: Anxiety Stated complaint: chest pain Time Seen by Provider: 02/20/23 12:16 Mode of Arrival: Ambulatory Source of Information: Patient Limitations: No Limitations Description of Symptoms (Recalled from ER Triage Doc. by RN): Pt c/o unilateral arm and leg tingling, midsternal chest pain that is intermittent and sharp, and sensation of feeling like something is caught in my throat. states pt symptoms started yesterday during a panic attack and they havent subsided. Pt states he took his amitriptyline yesterday as well and his says he slept for 12 hours afterwards. Denies N/V/D, diaphoresis, dizziness, or SOA. History of Present Illness HPI narrative: This 42 year old male presents to the ED with concerns of chest pain, unilateral tingling, throat swelling sensation. Patient has a history of anxiety and high blood pressure and frequently develops similar symptoms, however the chest pressure today was new. 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 He states that he took it yesterday after his symptoms started and he feels somewhat better, however today he had recurrence of symptoms. The tingling on the left side of his body has resolved upon presentation to the emergency department. He denies any weakness. He denies vision changes. He denies difficulty breathing, nausea, vomiting, or diarrhea. No fevers. No other positive review of systems. Related Data Home Medications Medication Instructions Recorded Confirmed ranitidine HCl 150 mg tablet 150 mg PO DAILY GERD 12/23/18 08/02/20 gabapentin 300 mg capsule 300 mg PO BID Back ache/back pain 08/02/20 08/02/20 losartan 50 mg tablet 50 mg PO DAILY High blood pressure 08/02/20 08/02/20 Previous Rx's Medication Instructions Recorded amoxicillin 875 mg-potassium 1 tab PO Q12H 7 days #14 tabs 10/05/20 clavulanate 125 mg tablet methylprednisolone 4 mg tablet 4 mg PO DIRECTED #21 tabs 10/05/20 hydroxyzine pamoate 25 mg capsule 25 mg PO Q8H PRN Anxiety #20 caps
[2023-02-20 12:36] LABS: Chloride 105 mmol/L (98-107); Potassium 3.8 mmoL/L (3.5-5.1); Sodium 140 mmol/L (136-145)
--- NOTE | 2023-02-20 12:38 | PC.NURSE ---
xray at bs
[2023-02-20 12:39] LABS: Alanine Aminotransferase 37 U/L (12-78); Albumin/Globulin Ratio 1.3 (1.1-1.8); Alkaline Phosphatase 100 U/L (38-126); Anion Gap 9.8 mEq/L (5-15); Aspartate Amino Transferase 30 U/L (17-59); Bilirubin,Total 0.9 mg/dl (0.2-1.3); Blood Urea Nitrogen 17 mg/dl (9-20); Carbon Dioxide 29 mmol/L (22.0-30.0); Creatinine Clearance Estimated 113 mL/min (50-200); Estimated Glomerular Filt Rate 66 ml/min (>60); GFR (African American) 80 ML/MIN (>60); Globulin 3.2 g/dL (1.3-3.2); Total Protein,Serum 7.2 g/dl (6.3-8.2)
[2023-02-20 12:40] LABS: Calcium 9.3 mg/dl (8.4-10.2); Glucose 95 mg/dl (74-100)
[2023-02-20 12:44] LABS: Basophils # 0.1 K/mm3 (0-0.2); Basophils % 0.6 % (0.1-2.0); Eosinophils # 0.2 K/mm3 (0.0-0.4); Eosinophils % 2.1 % (0.1-12.0); Hematocrit 46.7 % (42.0-52.0); Hemoglobin 15.5 g/dL (14.1-18.0); Lymphocytes # 2.4 K/mm3 (0.7-4.5); Lymphocytes % 28.7 % (10-50); Mean Corpuscular HGB Conc 33.1 g/dL (31.8-35.4); Mean Corpuscular Hemoglobin 31.4 pg (27.0-31.2); Mean Corpuscular Volume 94.7 fl (80-94); Mean Platelet Volume 9.5 fl (7.4-10.4); Monocytes # 0.5 K/mm3 (0.1-1.0); Monocytes % 6.1 % (1.7-9.3); Neutrophils # 5.2 K/mm3 (1.8-7.8); Neutrophils % 62.5 % (37.0-80.0); Platelet Count 286 K/mm3 (142-424); Red Blood Count 4.93 M/mm3 (4.60-6.20); Red Cell Distribution Width 12.9 % (11.5-17.5); White Blood Count 8.4 K/mm3 (4.8-10.8)
[2023-02-20 13:15] LABS: Troponin I < 0.01 ng/ml (0.00-0.034)
--- NOTE | 2023-02-20 14:28 | PC.NURSE ---
rounded on pt he ambulated to restroom with no problems
--- NOTE | 2023-02-20 15:30 | PC.NURSE ---
lab at bedside for repeat troponin
--- NOTE | 2023-02-20 15:49 | PC.NURSE ---
checked on pt let him know we were still waiting for second trop to result at bs
[2023-02-20 16:15] LABS: Troponin I < 0.01 ng/ml (0.00-0.034)
== END 2023-02-20 17:27 | disposition home or self-care (01) ==
PROVIDERS: Emergency Provider Emergency Medicine; PCP Nurse Practitioner Family
DX: R07.9 Chest pain, unspecified (principal); R20.2 Paresthesia of skin; F41.9 Anxiety disorder, unspecified
CPT/HCPCS: 36415; 71045; 80053; 84484; 85025; 93005; 99285

== ENCOUNTER 2023-12-10 17:23 | Emergency (ER) | payer BC, SELFPAY ==
[2023-12-10 17:26] VITALS: BP 124/72; PULSE 69; RESP 15; TEMP 36.8; O2SAT 100; BMI 38.9
[2023-12-10 18:01] VITALS: BP 112/75; PULSE 72; O2SAT 95
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
[2023-12-10 18:30] VITALS: BP 115/76; PULSE 59; O2SAT 98
[2023-12-10 18:31] LABS: Basophils # 0.1 K/mm3 (0-0.2); Eosinophils # 0.3 K/mm3 (0.0-0.4); Eosinophils % 3.3 % (0.1-12.0); Hematocrit 44.1 % (42.0-52.0); Hemoglobin 14.2 g/dL (14.1-18.0); Mean Corpuscular HGB Conc 32.1 g/dL (31.8-35.4); Mean Corpuscular Hemoglobin 31.5 pg (27.0-31.2); Mean Corpuscular Volume 98.3 fl (80-94); Mean Platelet Volume 9.4 fl (7.4-10.4); Monocytes # 0.5 K/mm3 (0.1-1.0); Monocytes % 5.6 % (1.7-9.3); Neutrophils # 5.5 K/mm3 (1.8-7.8); Neutrophils % 58.1 % (37.0-80.0); Platelet Count 274 K/mm3 (142-424); Red Blood Count 4.49 M/mm3 (4.60-6.20); Red Cell Distribution Width 13.6 % (11.5-17.5); White Blood Count 9.5 K/mm3 (4.8-10.8)
[2023-12-10 18:33] LABS: Chloride 105 mmol/L (98-107); Sodium 139 mmol/L (136-145)
[2023-12-10 18:34] LABS: Potassium 3.8 mmoL/L (3.5-5.1)
[2023-12-10 18:36] LABS: Alanine Aminotransferase 39 U/L (12-78); Albumin/Globulin Ratio 1.3 (1.1-1.8); Alkaline Phosphatase 77 U/L (38-126); Anion Gap 8.8 mEq/L (5-15); Aspartate Amino Transferase 30 U/L (17-59); Bilirubin,Total 0.6 mg/dl (0.2-1.3); Blood Urea Nitrogen 22 mg/dl (9-20); Carbon Dioxide 29 mmol/L (22.0-30.0); Creatinine Clearance Estimated 122 mL/min (50-200); Estimated Glomerular Filt Rate 73 ml/min (>60); GFR (African American) 88 ML/MIN (>60); Glucose 112 mg/dl (74-100); Lipase 92 U/L (23-300)
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
--- NOTE | 2023-12-10 18:39 | XR_ITS ---
PROCEDURE INFORMATION: Exam: XR Left Wrist Exam date and time: 12/10/2023 7:26 PM Age: 43 years old Clinical indication: Pain; Wrist; Left TECHNIQUE: Imaging protocol: Radiologic exam of the left wrist. Views: 1 or 2 views. COMPARISON: No relevant prior studies available. FINDINGS: Bones/joints: Multiple views were obtained. The osseous structures appear intact with no evidence of acute fracture, dislocation, or malalignment. Joint spaces are preserved. No abnormal bone density or destructive lesions are noted. Soft tissues: Soft tissue swelling is observed, and further clinical correlation is advised. IMPRESSION: At the time of imaging, the skeletal radiograph demonstrates no acute osseous abnormalities but does show soft tissue swelling.
[2023-12-10] MEDS: ONDANSETRON 4MG/2ML VIAL 4 MG IV (18:43)
[2023-12-10] MEDS: MORPHINE 4MG/ML SYRINGE 4 MG IV (18:43)
[2023-12-10] MEDS: 0.9 % SODIUM CHLORIDE 50 ML VIAL IV (19:18)
[2023-12-10] MEDS: SODIUM CHLORIDE 0.9% 10ML SYR (RAD ONLY) 10 ML IV (19:18)
[2023-12-10] MEDS: IOPAMIDOL-370 (76%);100ML BOTTLE 100 ML IV (19:18)
[2023-12-10 21:49] VITALS: BP 119/87; PULSE 73; RESP 18; TEMP 36.8; O2SAT 98
== END 2023-12-10 21:50 | disposition home or self-care (01) ==
PROVIDERS: Emergency Provider Emergency Medicine; PCP Nurse Practitioner Family
DX: R07.81 Pleurodynia (principal); R10.11 Right upper quadrant pain; M25.532 Pain in left wrist; F17.210 Nicotine dependence, cigarettes, uncomplicated; V85.5XXA Driver of special construction vehicle injured in nontraffic accident, initial encounter
CPT/HCPCS: 71275; 73100; 74174; 80053; 83690; 85025; 96374; 96375; 99285; J2270; J2405; Q9967

== ENCOUNTER 2023-12-20 07:06 | Emergency (ER) | payer SELFPAY ==
--- NOTE | 2023-12-20 07:11 | HMH.EDGENADL ---
Discharge Plan Disposition Patient Disposition: Home, Self-Care Condition: Good Prescriptions Prescriptions: New amoxicillin-pot clavulanate 875-125 mg tablet 1 tab PO BID 7 Days Qty: 14 0RF No Action ranitidine HCl 150 MG tablet 150 mg PO DAILY losartan 50 MG tablet 50 mg PO DAILY gabapentin 300 MG capsule 300 mg PO BID methylprednisolone 4 MG tablet 4 mg PO DIRECTED Qty: 21 0RF Rx Instructions: Take as directed on package instructions amoxicillin-pot clavulanate 1 EACH tablet 1 tab PO Q12H 7 Days Qty: 14 0RF ibuprofen 400 MG tablet 600 mg PO Q6HP 14 Days Qty: 60 0RF hydroxyzine pamoate 25 MG capsule 25 mg PO Q8H PRN (Reason: Anxiety) Qty: 20 0RF hydroxyzine pamoate 25 MG capsule 25 mg PO Q8H PRN (Reason: Anxiety) Qty: 20 0RF hydroxyzine HCl 25 mg tablet 25 mg PO BID PRN (Reason: anxiety) 10 Days Qty: 20 0RF ibuprofen 800 mg tablet 800 mg PO Q6H PRN (Reason: pain) 5 Days Qty: 20 0RF acetaminophen [Tylenol Extra Strength] 500 mg tablet 1,000 mg PO Q6H PRN (Reason: pain) 5 Days Qty: 40 0RF Referrals Follow up/Referrals: Yeyo Bailey APRN [Primary Care Provider] - See instructions Activity Restrictions/Add. Instructions Additional Instructions/Restrictions: You have been evaluated in the ED for your complaints. You may follow-up with your PCP in the next 3 to 5 days. Please return to ED for any new or worsening symptoms. I have written for Augmentin to treat your pneumonia. Please take this as prescribed over the next 7 days. Please continue to take ibuprofen and Tylenol as needed. Clinical Impressions Clinical Impression: Pneumonia Instructions Patient Instructions: Pneumonia-Adult Discharge ED Provider: Darin Zaragoza Adult HPI General Chief complaint: Chest Pain Stated complaint: headache, sore throat, diff breathing Time Seen by Provider: 12/20/23 07:10 History of Present Illness HPI narrative: 43-year-old male with past medical history significant for anxiety, HTN, GERD, presents today for evaluation concerning generalized headache, sore throat, cough, congestion and nausea over the past 2 days. States he has also had mild generalized abdominal pain and has had mild diarrhea that has been nonbloody. states that 2 nights ago patient had an oral temperature of 101 ?F. Patient has been taking old amoxicillin at home and ibuprofen to assist with symptoms. at home has been having similar symptoms. He denies having any chest pain, shortness of breath, dysuria, hematuria or any other associated symptoms at this time. No further complaints. Related Data Home Medications Medication Instructions Recorded Confirmed ranitidine HCl 150 mg tablet 150 mg PO DAILY GERD 12/23/18 08/02/20 gabapentin 300 mg capsule 300 mg PO BID Back ache/back pain 08/02/20 08/02/20 losartan 50 mg tablet 50 mg PO DAILY High blood pressure 08/02/20 08/02/20 Previous Rx's Medication Instructions Recorded amoxicillin 875 mg-potassium 1 tab PO Q12H 7 days #14 tabs 10/05/20 clavulanate 125 mg tablet methylprednisolone 4 mg tablet 4 mg PO DIRECTED #21 tabs 10/05/20 hydroxyzine pamoate 25 mg capsule 25 mg PO Q8H PRN Anxiety #20 caps 02/18/21 ibuprofen 400 mg tablet 600 mg (1.5 x 400 mg) PO Q6HP 14 02/18/21 days #60 tabs hydroxyzine pamoate 25 mg capsule 25 mg PO Q8H PRN Anxiety #20 caps 03/28/21 hydroxyzine HCl 25 mg tablet 25 mg PO BID PRN anxiety 10 days 02/20/23 #20 tabs acetaminophen 500 mg tablet 1,000 mg (2 x 500 mg) PO Q6H PRN 12/10/23 (Tylenol Extra Strength) pain 5 days #40 tabs ibuprofen 800 mg tablet 800 mg PO Q6H PRN pain 5 days #20 12/10/23 tabs amoxicillin 875 mg-potassium 1 tab PO BID 7 days #14 tabs 12/20/23 clavulanate 125 mg tablet Allergies Allergy/AdvReac Type Severity Reaction Status Date / Time No Known Allergies Allergy Verified 12/20/23 07:21 [facility] Disclaimer: The information contained in this section may have been updated after the patient was seen, as this information can be updated by other users. Social History Smoking Status: Never smoker alcohol intake: never substance use type: denies use current occupational status: other Travel in the last 8 weeks: None household members: spouse housing: house ROS Obtained: Yes All systems reviewed & no additional complaints except as documented Physical Exam General General appearance: alert and in no apparent distress Head Head exam: atraumatic and normocephalic Eye Eye exam: Present normal appearance, PERRL and EOMI ENT ENT exam: Present normal oropharynx and mucous membranes moist Neck Neck exam: Present full ROM; Absent meningismus Respiratory Respiratory exam: Absent respiratory distress, wheezes, stridor or accessory muscle use Cardiovascular Cardiovascular exam: Present normal rhythm Abdominal Exam Abdominal exam: Present soft and tenderness (Mild generalized); Absent distention, guarding, rebound or rigidity Neurological Exam Neurological exam: Present alert, oriented X3 and CN II-XII intact; Absent motor sensory deficit Psychiatric Psychiatric exam: Present normal affect and normal mood Skin Skin exam: Present warm and dry Medical Decision Making Medical Records Medical records reviewed: Yes I reviewed the patient's medical records. [place] Inquiry Pt receiving controlled substance: No [place] was queried for this patient: No Vital Signs: 12/20/23 07:16 12/20/23 07:30 Temperature 97.8 F Temperature Source Oral Pulse Rate [Left] 71 Respiratory Rate 12 18 Blood Pressure 120/78 Blood Pressure [Right Arm] 120/78 Blood Pressure Mean [Right Arm] 92 Blood Pressure Source [Right Arm] Automatic Cuff Blood Pressure Position [Right Arm] Sitting 02 Sat by Pulse Oximetry 99 Oxygen Delivery Method Room Air Lab Data Lab Results 12/20/23 07:28: SARS-CoV-2 (PCR) Not detected, Influenza A Untype (PCR) Not detected, Influenza Type B (PCR) Not detected 12/20/23 07:37: WBC 9.9, RBC 4.32 L, Hgb 14.1, Hct 42.0, MCV 97.2 H, MCH 32.6 H, MCHC 33.5, RDW 13.3, Plt Count 269, MPV 8.9, Neut % (Auto) 65.7, Lymph % (Auto) 25.5, Moody % (Auto) 5.5, Eos % (Auto) 2.7, Baso % (Auto) 0.7, Neut # (Auto) 6.5, Lymph # (Auto) 2.5, Moody # (Auto) 0.6, Eos # (Auto) 0.3, Baso # (Auto) 0.1, Sodium 139, Potassium 4.0, Chloride 110 H, Carbon Dioxide 25, Anion Gap 8.0, BUN 15, Creatinine 1.00, Estimated Creat Clear 134, Estimated GFR 82, Est GFR ( Amer) 99, Glucose 109 H, Calcium 8.8, Total Bilirubin 0.5, AST 24, ALT 30, Alkaline Phosphatase 84, Total Protein 6.7, Albumin 3.8, Globulin 2.9, Albumin/Globulin Ratio 1.3, Lipase 87 12/20/23 07:45: Lactate 0.8 12/20/23 07:37 12/20/23 07:37 Orders (Tests/Meds): ED MEDICATIONS Discontinued Medications Generic Name Dose Route Start Last Admin Trade Name Freq PRN Reason Stop Dose Admin Ketorolac Tromethamine 15 mg 12/20/23 07:20 12/20/23 07:28 Ketorolac 30mg/Ml Vial IV 12/20/23 07:21 15 mg ONCE ONE Administration Ondansetron HCl 4 mg 12/20/23 07:20 12/20/23 07:28 Ondansetron 4mg/2ml Vial IV 12/20/23 07:21 4 mg ONCE ONE Administration ORDERS Category Date Time Status CXR 2 view (NOT portable) [XR chest 2V] Stat Exams 12/20/23 07:32 Taken CBC w/Auto Diff [Complete Blood Count Auto Diff] Stat Lab 12/20/23 07:37 Completed CMP [Comprehensive Metabolic Panel] Stat Lab 12/20/23 07:37 Completed Lactic Acid Stat Lab 12/20/23 07:45 Completed Lipase Stat Lab 12/20/23 07:37 Completed Rapid PCR Covid and Flu A/B Stat Lab 12/20/23 07:28 Completed Medical Decision Narrative: 43-year-old male with past medical history significant for anxiety, HTN, GERD, presents today for evaluation concerning generalized headache, sore throat, cough, congestion and nausea over the past 2 days. States he has also had mild generalized abdominal pain and has had mild diarrhea that has been nonbloody. states that 2 nights ago patient had an oral temperature of 101 ?F. Patient has been taking old amoxicillin at home and ibuprofen to assist with symptoms. On assessment he was hemodynamically stable and in no acute distress. Afebrile. His chest was clear to station bilaterally. His abdomen was soft nondistended and mildly tender to palpation generally. No maximal tenderness in the right lower quadrant or left lower quadrant. Oropharynx is clear. Other physical exam findings unremarkable. Differential diagnoses include not limited to COVID, influenza, other viral URI, gastritis, gastroenteritis, among others. EKG was ordered and shows sinus bradycardia with a rate of 58 bpm. No ischemic changes. His labs today show no elevation in WBC at 9.9. CMP with normal liver enzymes with AST being 24, ALT pain 30. Alkaline phosphatase of 84. Negative COVID/influenza swabs. Chest x-ray on my informal interpretation appears to have retrocardiac consolidation. Given patient's symptoms I will plan to treat as pneumonia. On reassessment remains medically stable and in no acute distress. He is resting well in bed with stable vital signs. He remains afebrile. I discussed ED workup and results as well as current plan to discharge with Augmentin. He verbalized understanding and agreed with plan. Provided with instructions and PCP follow-up and return precautions. Subsequently discharged hemodynamically stable and in no acute distress Critical Care Critical Care Time Critical Care Time: No
--- NOTE | 2023-12-20 07:13 | ECG_ITS ---
APPROVED REPORT Exam: Resting ECG HR:58 bpm ECG Measurements Heart Rate 58 AXES AR 156 P 61 QRSd 117 QRS 71 QT 397 T 39 QTc 394 Conclusion SINUS BRADYCARDIA MODERATE INTRAVENTRICULAR CONDUCTION DELAY [110+ ms QRS DURATION] BORDERLINE ECG UNCONFIRMED REPORT Electronically signed by : ALFONSO REYES, 12/20/2023 16:09:07
[2023-12-20 07:16] VITALS: BP 120/78; PULSE 71; RESP 12; TEMP 36.6; O2SAT 99; BMI 38.9
[2023-12-20] MEDS: ONDANSETRON 4MG/2ML VIAL 4 MG IV (07:28)
[2023-12-20] MEDS: KETOROLAC 30MG/ML VIAL 15 MG IV (07:28)
[2023-12-20 07:30] VITALS: BP 120/78; RESP 18
--- NOTE | 2023-12-20 07:32 | XR_ITS ---
FINAL REPORT CLINICAL HISTORY: cough/congestion pt stated mid sternal chest pain as well with not feeling well COMPARISON: 02/20/2023 FINDINGS: Two views of the chest were obtained. The heart size and pulmonary vascularity are within normal limits. The mediastinum is normal. No acute pulmonary abnormality is identified. There is no pneumothorax. The bony thorax is intact. IMPRESSION: No active cardiopulmonary disease. Reviewed, Interpreted and Dictated by Nick Lloyd III, MD Transcribed by Delma Mills Authenticated and [facility]
[2023-12-20 07:35] LABS: Coronavirus 19, PCR Not Detected (NotDetected); Influenza A, PCR Not Detected (NotDetected); Influenza B, PCR Not Detected (NotDetected)
[2023-12-20 07:47] LABS: Basophils # 0.1 K/mm3 (0-0.2); Basophils % 0.7 % (0.1-2.0); Eosinophils # 0.3 K/mm3 (0.0-0.4); Eosinophils % 2.7 % (0.1-12.0); Hemoglobin 14.1 g/dL (14.1-18.0); Lymphocytes # 2.5 K/mm3 (0.7-4.5); Lymphocytes % 25.5 % (10-50); Mean Corpuscular HGB Conc 33.5 g/dL (31.8-35.4); Mean Corpuscular Hemoglobin 32.6 pg (27.0-31.2); Mean Corpuscular Volume 97.2 fl (80-94); Mean Platelet Volume 8.9 fl (7.4-10.4); Monocytes # 0.6 K/mm3 (0.1-1.0); Monocytes % 5.5 % (1.7-9.3); Neutrophils # 6.5 K/mm3 (1.8-7.8); Neutrophils % 65.7 % (37.0-80.0); Platelet Count 269 K/mm3 (142-424); Red Blood Count 4.32 M/mm3 (4.60-6.20); Red Cell Distribution Width 13.3 % (11.5-17.5); White Blood Count 9.9 K/mm3 (4.8-10.8)
[2023-12-20 07:48] LABS: Chloride 110 mmol/L (98-107); Sodium 139 mmol/L (136-145)
[2023-12-20 07:51] LABS: Alanine Aminotransferase 30 U/L (12-78); Albumin Level 3.8 g/dl (3.5-5.0); Albumin/Globulin Ratio 1.3 (1.1-1.8); Alkaline Phosphatase 84 U/L (38-126); Aspartate Amino Transferase 24 U/L (17-59); Bilirubin,Total 0.5 mg/dl (0.2-1.3); Blood Urea Nitrogen 15 mg/dl (9-20); Calcium 8.8 mg/dl (8.4-10.2); Carbon Dioxide 25 mmol/L (22.0-30.0); Creatinine Clearance Estimated 134 mL/min (50-200); Estimated Glomerular Filt Rate 82 ml/min (>60); GFR (African American) 99 ML/MIN (>60); Globulin 2.9 g/dL (1.3-3.2); Glucose 109 mg/dl (74-100); Lipase 87 U/L (23-300); Total Protein,Serum 6.7 g/dl (6.3-8.2)
[2023-12-20 08:10] LABS: Lactic Acid 0.8 mmol/L (0.7-2.1)
[2023-12-20 08:48] VITALS: BP 103/72; PULSE 61; RESP 16; TEMP 36.6
== END 2023-12-20 08:56 | disposition home or self-care (01) ==
PROVIDERS: Emergency Provider Emergency Medicine; PCP Nurse Practitioner Family
DX: J18.9 Pneumonia, unspecified organism (principal); R51.9 Headache, unspecified; R00.1 Bradycardia, unspecified; I10 Essential (primary) hypertension; K21.9 Gastro-esophageal reflux disease without esophagitis; R05.9 Cough, unspecified
CPT/HCPCS: 71046; 80053; 83605; 83690; 85025; 87636; 93005; 96374; 96375; 99284; J1885; J2405